=== PATIENT | male | born 1985 | race Caucasian/White ===

== ENCOUNTER 2020-07-15 11:02 | Inpatient (IN) ==
--- NOTE | 2020-06-24 10:04 | Anesthesiology Consultation ---
Date of Service June 24, 2020 History Surgery Operation Date: 07/15/20 12:25 Proposed Procedures p L3-L5 Revision Decompression Fusion, Spinal Cord Monitoring - Jason Malcolm DO Height/Weight Height: 6 ft Weight: 111.13 kg Allergies Allergy/AdvReac Type Severity Reaction Status Date / Time No Known Allergies Allergy Unverified 06/23/20 15:13 Medications Home Medications Medication Instructions Recorded Confirmed Last Taken albuterol sulfate 1 inh INHALATION QID PRN 05/31/20 06/23/20 Unknown amlodipine 10 mg PO QAM 05/31/20 06/23/20 Unknown hydrochlorothiazide 25 mg PO QAM 05/31/20 06/23/20 Unknown losartan 100 mg PO QAM 05/31/20 06/23/20 Unknown Past Medical History Medical History Asthma stable Chronic back pain herniated disc Hypertension Obesity Past Surgical History Surgical History Hx of laminectomy lumbar Hx of wisdom tooth extraction Social History Smoking Status: Current every day smoker tobacco type: cigarettes Smoking cigarettes per day: 1ppd (tobacco use x 10+ years) Do You Dip or Chew Tobacco: No Hx Alcohol Use: Yes alcohol intake frequency: a few times a month Hx Substance Use: Yes substance use type: marijuana Last Used Substance Other:: ocas for inflammation
--- NOTE | 2020-06-24 10:17 | Anesthesiology Consultation ---
Date of Service June 24, 2020 Assessment & Plan (1) Encounter for pre-operative examination: Patient seen in PAT on 06/07 and EKG showed new septal infarct. Note sent to PCP for comment, and PCP sent patient to cardiology for clearance. Surgery was postponed due to lack of appointment availability at cardio. New V# assigned to chart. Cardiology Clearance (Gaby Miller, [facility]) 06/22/20 = "He is currently stable and asymptomatic from a cardiovascular standpoint with no anginal symptoms occurring at >4 METS of activity. He has no evidence of CHF or significant valvular abnormality. His blood pressure is elevated in the clinic today. He believes it was better controlled when checked at another office last week. ...Will defer management of his hypertension to his PCP. Otherwise, patient is at an acceptable risk to proceed with upcoming surgery without any additional cardiovascular testing or intervention." Note also states that a rpt EKG was done at cardio appointment and was normal. Not yet uploaded to EMR. COVID Status: As of 06/23 nurse assessment, patient denies travel to endemic area, known exposure/sick contacts, or symptoms of COVID19. Preoperative COVID19 testing to be completed prior to surgery per surgeon's arrangements. Chart Review Chart Review: Acceptable Risk for Surgery and Patient seen in Pre Admission Testing (by Suzan Guzmán on 06/07, see her note for physical exam) History Surgery Operation Date: 07/15/20 12:25 Proposed Procedures p L3-L5 Revision Decompression Fusion, Spinal Cord Monitoring - Jason Malcolm, Height/Weight Height: 6 ft Weight: 111.13 kg Allergies Allergy/AdvReac Type Severity Reaction Status Date / Time No Known Allergies Allergy Unverified 06/23/20 15:13 Medications Home Medications Medication Instructions Recorded Confirmed Last Taken albuterol sulfate 1 inh INHALATION QID PRN 05/31/20 06/23/20 Unknown amlodipine 10 mg PO QAM 05/31/20 06/23/20 Unknown hydrochlorothiazide 25 mg PO QAM 05/31/20 06/23/20 Unknown losartan 100 mg PO QAM 05/31/20 06/23/20 Unknown Past Medical History Medical History Asthma stable Chronic back pain herniated disc Hypertension Obesity Past Surgical History Surgical History Hx of laminectomy lumbar Hx of wisdom tooth extraction Social History Smoking Status: Current every day smoker tobacco type: cigarettes Smoking cigarettes per day: 1ppd (tobacco use x 10+ years) Do You Dip or Chew Tobacco: No Hx Alcohol Use: Yes alcohol intake frequency: a few times a month Hx Substance Use: Yes substance use type: marijuana Last Used Substance Other:: ocas for inflammation Testing Laboratory Results See 06/07/20 labs from PAT Electrocardiogram Date: 06/07/20 Findings: + NSR @ (76bpm with sinus arrhythmia) Septal infarct, age undetermined. Septal infarct is new compared to 2016 EKG. Chest X-Ray Date: 06/07/20 Findings: + NAD
[~2020-07-15 11:02] MED LIST: ACETAMINOPHEN 500 MG TAB PO SCH; CEFAZOLIN 3000MG 72.5 ML IV SCH; CeleBREX 200 MG CAP PO SCH; GABAPENTIN 900 MG DOSE PO SCH; LR 15ML/HR IV SCH
[2020-07-15] MEDS ORDERED: HYDROmorphone INJ 1 MG/ML SYRINGE IV PRN ×2 (12:29→17:28)
[2020-07-15] MEDS ORDERED: ePHEDrine sulfate 50 MG/ML AMP IV PRN (12:29)
[2020-07-15] MEDS ORDERED: ATROPINE SULFATE 0.1 MG/ML 10ML SYR IV PRN (12:29)
[2020-07-15] MEDS ORDERED: ONDANSETRON INJ 2 MG/ML 2 ML VIAL IV PRN ×2 (12:29→17:28)
[2020-07-15] MEDS ORDERED: fentaNYL citrate 100 MCG/2 ML VIAL ONE (12:31)
[2020-07-15] MEDS ORDERED: ONDANSETRON INJ 2 MG/ML 2 ML VIAL ONE (12:31)
[2020-07-15] MEDS ORDERED: GLYCOPYRROLATE 0.2 MG/ML VIAL ONE (12:31)
[2020-07-15] MEDS ORDERED: DEXAMETHASONE SOD INJ 4 MG/ML VIAL ONE (12:31)
[2020-07-15] MEDS ORDERED: NEOSTIGMINE METHYLSULFATE 1 MG/ML 10ML VIAL ONE (12:31)
[2020-07-15] MEDS ORDERED: ROCURONIUM BROMIDE 10 MG/ML 5 ML VIAL IV ONE ×2 (12:31→14:11)
[2020-07-15] MEDS ORDERED: MIDAZOLAM HCL 1 MG/ML 2ML VIAL ONE (12:31)
[2020-07-15] MEDS ORDERED: HYDROmorphone INJ 2 MG/ML SYR/VIAL ONE (12:31)
[2020-07-15] MEDS ORDERED: PROPOFOL IV EMULSION 10 MG/ML 20 ML VIAL IV ONE (12:31)
[2020-07-15] MEDS ORDERED: LIDOCAINE HCL 2% 2 ML VIAL/AMP(20MG/ML) INFIL ONE (12:31)
--- NOTE | 2020-07-15 12:47 | History & Physical Bridge Note ---
Date of Service July 15, 2020 History & Physical Bridge Note I have examined the patient, reviewed the History & Physical and in the interval since the performance of the History & Physical I have noted the following changes of clinical significance: no changes noted
--- NOTE | 2020-07-15 12:48 | History & Physical Report ---
Date of Service July 15, 2020 Assessment & Plan (1) Neurogenic claudication due to lumbar spinal stenosis: Admission and Anticipated Discharge Date Admission Date: L3-L5 revision decompression and fusion History of Present Illness Chief Complaint: Back and bilateral leg pain Primary Care Provider: Jarod Arriaza DO This is a 35-year-old male presents with chronic persistent back and bilateral leg pain. Failed extensive course of nonoperative care is here for surgical invention. Allergies Allergy/AdvReac Type Severity Reaction Status Date / Time No Known Allergies Allergy Verified 07/15/20 11:36 Home Medications Home Medications Medication Instructions Recorded Confirmed Type albuterol sulfate 1 inh INHALATION QID PRN 05/31/20 07/15/20 History amlodipine 10 mg PO QAM 05/31/20 07/15/20 History hydrochlorothiazide 25 mg PO QAM 05/31/20 07/15/20 History losartan 100 mg PO QAM 05/31/20 07/15/20 History metoprolol tartrate 25 mg PO BID 07/15/20 07/15/20 History Past Med/Surg History Medical History Asthma stable Chronic back pain herniated disc Hypertension Obesity Surgical History Hx of laminectomy lumbar Hx of wisdom tooth extraction Social History Smoking Status: Current every day smoker Cigarettes Per Day: 1ppd (tobacco use x 10+ years); Second Hand Exposure: No; Do You Dip or Chew Tobacco: No; Tobacco Cessation Education Requested by Patient: No Hx Alcohol Use: Yes Hx Substance Use: Yes Last Used Substance Other:: ocas for inflammation Preferred Language: Burundian Communication Ability: Effective Paper Counter Required: No Beliefs That Will Affect Care: None Current Living Situation: Spouse Other Information That Helps Us Care for You: No Feels Safe at Home: Yes Safety Concerns: Feels Safe At This Time Physical Exam Physical Exam: Patient is alert and oriented neurologically intact. Heart regular rate and rhythm. Lungs clear to auscultation. Results & Data ([facility]) Vital Signs (Past 12 Hours) Vital Signs Temp Pulse Resp BP Pulse Ox 07/15/20 11:31 37.5 C 68 20 171/95 H 95
[2020-07-15] MEDS ORDERED: BACITRACIN INJ 50,000 UNIT VIAL ONE (13:22)
[2020-07-15] MEDS ORDERED: BUPIVACAINE/EPINEPHRINE 0.25% 1:200,000 30 ML VIAL ONE (13:22)
[2020-07-15] MEDS ORDERED: ALBUTEROL HFA INHALER 8.5 GM ONE (14:27)
[2020-07-15] MEDS ORDERED: FLOSEAL HEMOSTATIC MATRIX 10ML TOP ONE (15:26)
--- NOTE | 2020-07-15 15:55 | Operative Report ---
Post Operative Report Pre & Post Diagnosis Operation Date: 07/15/20 12:25 Pre-Op Diagnosis: Neurogenic claudication due to lumbar spinal stenosis Post-Op Diagnosis: Neurogenic claudication due to lumbar spinal stenosis I identified the patient and participated in the time-out.: Yes Procedure Operation Date: 07/15/20 12:25 Actual Procedures #1 revision decompression with medial facetectomies and foraminotomies L3-4 and L4-5 per #2 posterior spinal fusion L3-4 L4-5 per #3 placement posterior instrumentation L3-4 L4-5. #4 interbody fusion L3-4 and L4-5. #5 placement of peek cage 13 x 26 mm at L3-4 and 12 x 26 mm at L4-5 per #6 placement of locally harvested morselized autograft in the posterior lateral gutters. #7 placement infuse collagen sponge, master graft in the posterior gutters and ostial amp and interbody space. Surgeon Jason Malcolm DO Licensed Home Inspector Medical record Estimated Blood Loss 100 Findings See Below The patient is 6 feet tall weighing over 111 kg with a BMI in excess of 33. Patient's body habitus did create significant technical difficulty requiring her deepest retractors longus instruments in order to perform his procedure. This added at least 50% increase to the operative time. Specimens None Indications This is a 35-year-old male who presents with above-mentioned diagnosis after failing course of nonoperative care is here for the above-mentioned procedure. Description of Procedure Patient was met with identified informed consent obtained. Patient was then taken to the operative suite underwent an patient placed in a prone position the Omar table on top of the Chato frame. All bony prominences well-padded eyes inspected to ensure no external pressure placed upon them. This point the lumbar spine was prepped and draped in a normal sterile fashion. Sharp dissection with assistance of Bovie cautery was performed down to and exposing the remaining lamina and transverse processes of L3-L4 and L5 bilaterally. From a caudal cephalad fashion a revision complete laminectomy of L4 and L3 was performed including medial facetectomies and foraminotomies on the right to address all stenosis. Pedicle screws were then placed in L3-L4-L5 bilaterally with assistance of fluoroscopy and the proper sized kar placed. By way of a transforaminal approach on the right complete discectomy of L4-5 was performed endplates curetted to subcortical bleeding bone and a 12 x 26 mm peek cage filled with osteo-bone graft tapped in position. Then proceeded to L3-[address] of a transforaminal approach on the right discectomy was performed endplates curetted to subcortical bleeding bone and a 13 x 26 mm peek cage filled with osteo-bone graft tapped in position. The rods were then locked in final position bilaterally. The transverse processes of L3-L4 and L5 bur to subcortical bleeding bone. Infuse collagen sponge master graft local autograft was placed in the posterior lateral gutters. 15 round CLARISSA drain inserted. The incision was then closed with 1 Vicryl in the fascia 2-0 Vicryl subcutaneously and 4 Monocryl for final skin closure. Steri-Strip sterile dressings placed. Patient waken taken PACU stable condition. Please note spinal cord monitoring was utilized that the procedure no changes noted. Lastly Toby record was present at the entire surgery involved the patient positioning complex portions of the surgery and final skin closure. I attest to the content of the Intraoperative Record and any orders documented therein. Any exceptions are noted below.
--- NOTE | 2020-07-15 16:01 | Fluoroscopy Report ---
FL lumbar spine 2-3V CLINICAL HISTORY: L3-L5 REVISION DECOMPRESSION FUSION COMPARISON STUDY: Fluoroscopic image of the lumbar spine February 07, 2016. FLUOROSCOPY TIME: 20 seconds. FLUOROSCOPIC IMAGES: 3 FINDINGS: These images demonstrate L3-L4 and L4-L5 discectomies with interbody spacer placement. Post erior decompression is noted. There are bilateral pedicle screws at the L3, L4 and L5 levels. Hardwar e is intact. IMPRESSION: Fluoroscopic images demonstrating L3-L4 and L4-L5 discectomies and bilateral pedicle scre w fusion from L3 through L5. ACT 112: Negative or not required by law. Electronically signed by: Iván Florian M.D. 07/15/2020 4:00 PM
[2020-07-15] MEDS: fentaNYL citrate 100 MCG/2 ML VIAL IV PRN ×2 (16:37→16:42)
--- NOTE | 2020-07-15 16:58 | Anesthesiology Progress Note ---
Date of Service July 15, 2020 Anesthesia Post Procedure Vital Signs Vital Signs: Temp Pulse Pulse Resp BP BP Pulse Ox 07/15/20 16:50 36.8 C 67 15 156/73 H 93 07/15/20 16:40 72 20 171/90 H 97 07/15/20 16:30 89 16 173/96 H 94 07/15/20 16:22 37.1 C 85 18 184/93 H 94 07/15/20 11:31 37.5 C 68 20 171/95 H 95 Pain Intensity Back: Pain Intensity: 3 Transfer of Care Handoff Completed per policy Notes Mental Status: alert / awake / arousable Patient Amnestic to Procedure: Yes Nausea / Vomiting: adequately controlled Pain: adequately controlled Airway Patency, RR, SpO2: stable & adequate BP & HR: stable & adequate Hydration State: stable & adequate Anesthetic Complications: no major complications apparent and Pt Satisfied with anesthetic care
[2020-07-15] MEDS ORDERED: SOD PHOSPHATE/SOD BIPHOSPHATE ENEMA 132 ML BTL PR PRN (17:28)
[2020-07-15] MEDS ORDERED: bisacodyL 10 MG SUPP PR PRN (17:28)
[2020-07-15] MEDS ORDERED: ACETAMINOPHEN 500 MG TAB PO PRN (17:28)
[2020-07-15] MEDS ORDERED: TRAMADOL HCL 50 MG TABLET PO PRN (17:28)
[2020-07-15] MEDS ORDERED: ALUMINUM/MAGNESIUM SUSP 30 ML UDC PO PRN (17:28)
[2020-07-15] MEDS ORDERED: HYDROmorphone INJ 0.5 MG/0.5 ML SYR IV PRN (17:28)
[2020-07-15] MEDS ORDERED: MAGNESIUM HYDROXIDE SUSP 30 ML UDC PO PRN (17:28)
[2020-07-15] MEDS ORDERED: METOCLOPRAMIDE HCL INJ 5 MG/ML 2 ML VIAL IV PRN (17:28)
[2020-07-15] MEDS ORDERED: DO NOT ADMINISTER FLU VACCINE PRN (17:28)
[2020-07-15] MEDS ORDERED: PROMETHAZINE HCL 12.5 MG in SODIUM CHLORIDE 0.9% 50 ML IV PRN (17:28)
[2020-07-15] MEDS ORDERED: FAMOTIDINE 20 MG TAB PO PRN (17:28)
[2020-07-15] MEDS ORDERED: ALBUTEROL HFA 8 GM INHALER INH PRN (17:28)
[2020-07-15] MEDS ORDERED: ONDANSETRON 4 MG OD TAB PO PRN (17:28)
[2020-07-15] MEDS ORDERED: NALOXONE HCL 0.4 MG/1 ML VIAL/CARP IV PRN (17:28)
[2020-07-15] MEDS ORDERED: LORazepam 0.5 MG/1 ML VIAL IV PRN (17:28)
[2020-07-15] MEDS ORDERED: DO NOT ADMINISTER PNEUMOCOCCAL VACCINE PRN (17:28)
[2020-07-15] MEDS ORDERED: ACETAMINOPHEN 1,000 MG/100 ML VIAL IV PRN (17:28)
--- NOTE | 2020-07-15 17:58 | Hospitalist Consultation ---
Date of Consultation July 15, 2020 Assessment & Plan (1) Neurogenic claudication due to lumbar spinal stenosis: - POD#0 L3-L5 revision of decompression and fusion by Dr. Malcolm - activity and wound care orders as per ortho - pain control with bowel regimen - PT/OT - monitor H/H for acute blood loss anemia and transfuse blood products PRN - EBL 100 cc (2) Hypertension: -BP controlled, continue losartan, amlodipine, HCTZ, metoprolol -Patient reports PCP is starting work-up for secondary causes of HTN as an outpatient (3) DVT prophylaxis: -TEDs/SCDs as per spine Ortho Thank you for this consultation. We will follow the patient with you during their hospital stay. You can reach a [facility] via pager @ [phone]. Supervising Physician Co-Signing Physician Notes I, Dr. Terrance Eugene, have seen and examined the patient Kali Olivaresdamien with nurse practitioner and On Physical Exam General: no distress Eyes: EOMI Heart: regular rate Lung: clear to auscultation Back: CLARISSA drain Abdomen: soft Extremities no edema Assessment and Plan -This is a patient of orthopedics who had Pre-Op Diagnosis of Neurogenic claudication due to lumbar spinal stenosis -On 07/15/20 patient had the following lumbar spine procedure by Dr. Malcolm #1 revision decompression with medial facetectomies and foraminotomies L3-4 and L4- 5 per #2 posterior spinal fusion L3-4 L4-5 per #3 placement posterior instrumentation L3-4 L4-5. #4 interbody fusion L3-4 and L4-5. #5 placement of peek cage 13 x 26 mm at L3-4 and 12 x 26 mm at L4-5 per #6 placement of locally harvested morselized autograft in the posterior lateral gutters. #7 placement infuse collagen sponge, master graft in the posterior gutters and ostial amp and interbody space. -Hospitalist Medicine service is asked for consultation for Medical management -management of Hypertension as above -nausea and pain medications prn -PT/OT evaluations, follow the labs for 07/16/2020 -agree with other assessment and plans of other health conditions as documented by nurse practitioner -My colleague hospitalist Dr. Morocho will be following the patient starting on 07/16/2020 History of Present Illness Reason for Consultation: Postop medical management Requesting Physician: Dr. Malcolm Attending Physician: Dr. Eugene History of Present Illness 35-year-old male with PMH hypertension and other problems listed below who is status post L3-L5 revision decompression and fusion today by Dr. Malcolm. Postoperatively, the patient is doing well. He reports his pain is well controlled. Denies numbness and tingling to lower extremities. No chest pain or shortness of breath. Denies lightheadedness and dizziness. No abdominal pain or nausea. Conrad catheter is in place draining clear yellow urine. Allergies Allergy/AdvReac Type Severity Reaction Status Date / Time No Known Allergies Allergy Verified 07/15/20 11:36 Home Medications Home Medications Medication Instructions Recorded Confirmed Type albuterol sulfate 1 inh INHALATION QID PRN 05/31/20 07/15/20 History amlodipine 10 mg PO QAM 05/31/20 07/15/20 History hydrochlorothiazide 25 mg PO QAM 05/31/20 07/15/20 History losartan 100 mg PO QAM 05/31/20 07/15/20 History metoprolol tartrate 25 mg PO BID 07/15/20 07/15/20 History Patient History Medical History Asthma stable Chronic back pain herniated disc Hypertension Obesity Surgical History Hx of laminectomy lumbar Hx of wisdom tooth extraction Family History Other Family history non-contributory Social History Smoking Status: Current every day smoker Cigarettes Per Day: 1ppd (tobacco use x 10+ years); Second Hand Exposure: No; Do You Dip or Chew Tobacco: No; Tobacco Cessation Education Requested by Patient: No Hx Alcohol Use: Yes Hx Substance Use: Yes Last Used Substance Other:: ocas for inflammation Preferred Language: Occitan Communication Ability: Effective Manager Pulmonary Required: No Beliefs That Will Affect Care: None Current Living Situation: Spouse Other Information That Helps Us Care for You: No Feels Safe at Home: Yes Safety Concerns: Feels Safe At This Time Review of Systems Review of Systems: ROS per HPI, all other systems reviewed and negative Physical Exam Constitutional: WD/WN, vitals as above Eyes: PERRL, conjunctivae normal, anicteric sclerae ENMT: external ear and nose normal, oropharynx normal Respiratory: normal respiratory effort, lungs clear to auscultation Cardiovascular: Rate/Rhythm: regular rate and regular rhythm Vessels: n ormal peripheral pulses Extremities: no edema Gastrointestinal (Abdomen): normal bowel sounds, soft, nontender, no hepatosplenomegaly Musculoskeletal: no cyanosis or clubbing, extremities motor strength 5/5 S/p back surgery, pedal pushes and pulls strong bilaterally, drain in place draining bloody drainage Skin: no rashes, warm and dry Neurologic: PERRL, EOMI, accommodation nl, no face palsy, no dysarthria Psychiatric: A+Ox3, euthymic affect Results & Data Results & Data ([facility]) Vital Signs (Past 12 Hours) Vital Signs Temp Pulse Pulse Resp BP BP Pulse Ox 07/15/20 17:00 76 16 128/68 92 07/15/20 16:50 36.8 C 67 15 156/73 H 93 07/15/20 16:40 72 20 171/90 H 97 07/15/20 16:30 89 16 173/96 H 94 07/15/20 16:22 37.1 C 85 18 184/93 H 94 07/15/20 11:31 37.5 C 68 20 171/95 H 95
[2020-07-15] MEDS: KETOROLAC 30 MG/ML VIAL IV SCH (18:41)
[2020-07-15] MEDS: LACTATED RINGER'S 1,000 ML IV SCH (18:43)
[2020-07-15] MEDS: OXYCODONE HCL IR 5 MG TAB (IMMEDIATE RELEASE) PO PRN (20:25)
[2020-07-15] MEDS: DOCUSATE SODIUM/SENNA 50/8.6MG TAB PO SCH (20:27)
[2020-07-15] MEDS: METOPROLOL TARTRATE 25 MG TAB PO SCH (20:27)
[2020-07-15] MEDS: CEFAZOLIN 2000MG 2,000 MG/15 ML SYR IV SCH (22:13)
[2020-07-15] MEDS: LORazepam 0.5 MG TAB PO PRN (22:13)
[2020-07-16] MEDS: KETOROLAC 30 MG/ML VIAL IV SCH ×3 (00:03→12:41)
[2020-07-16] MEDS: LACTATED RINGER'S 1,000 ML IV SCH (00:03)
[2020-07-16] MEDS: OXYCODONE HCL IR 5 MG TAB (IMMEDIATE RELEASE) PO PRN ×4 (03:48→20:16)
[2020-07-16] MEDS: CEFAZOLIN 2000MG 2,000 MG/15 ML SYR IV SCH (05:44)
[2020-07-16] MEDS: POLYETHYLENE (MIRALAX) 17 GM PACK PO SCH ×4 (05:45→23:38)
[2020-07-16 05:49] LABS: Basophils # (auto) 0.01 K/uL (0-0.2); Basophils % (auto) 0.1 %; Eosinophils # (auto) 0.01 K/uL (0-0.5); Eosinophils % (auto) 0.1 %; Hematocrit (blood only) 38.4 % (42-52); Hemoglobin 13.3 g/dL (14.0-18.0); Immature Granulocytes # (auto) 0.05 K/uL (0.00-0.02); Immature Granulocytes % (auto) 0.3 %; Lymphocytes # (auto) 3.12 K/uL (1.2-3.4); Mean Corpuscular Hemoglobin 30.7 pg (25-34); Mean Corpuscular Hgb Conc 34.6 g/dL (32-36); Mean Corpuscular Volume 88.7 fL (80-100); Mean Platelet Volume 10.2 fL (7.4-10.4); Monocytes # (auto) 0.74 K/uL (0.11-0.59); Monocytes % (auto) 4.5 %; Neutrophils # (auto) 12.49 K/uL (1.4-6.5); Platelet Count 213 K/uL (130-400); RDW Standard Deviation 38.9 fL (36.4-46.3); Red Blood Count 4.33 M/uL (4.7-6.1); White Blood Count 16.42 K/uL (4.8-10.8)
[2020-07-16 06:25] LABS: BUN Creatinine Ratio 16.2 (10-20); Calcium 8.5 mg/dl (8.5-10.1); Creatinine Clr Calc Pharmacy 161.9 ml/min; Est GFR (African American) 132.8; Est GFR (Non-African American) 114.6
--- NOTE | 2020-07-16 08:17 | Orthopedic Progress Note ---
Date of Service July 16, 2020 Assessment & Plan (1) Neurogenic claudication due to lumbar spinal stenosis: Admission and Anticipated Discharge Date Admission Date: July 15, 2020 Supervising Physician Co-Signing Physician Notes Dr. Jason Malcolm Subjective Patient is postoperative day 1 posterior spinal fusion L3-5. He has had an uneventful evening. He is doing well this morning. Back pain is controlled. Leg pain he had preoperatively is greatly improved. H&H is morning are 13.3 and 38.4 respectively. CLARISSA drain output last shift was 90 cc. He has no other complaints. Review of Systems Review of Systems: All systems reviewed & are unremarkable except as noted in HPI & below Physical Exam Physical Exam: He is lying in bed in no acute distress. He is alert and oriented x3. Lumbar dressing is clean dry and intact with functioning CLARISSA drain. Lower extremities calves are soft nontender bilaterally. Strength is 5/5 bilaterally. Constitutional: WD/WN, vitals as above Eyes: normal visual whyte by confrontation ENMT: external ear and nose normal, oropharynx normal Neck: normal visual inspection Respiratory: normal respiratory effort Cardiovascular: Extremities: normal capillary refill Chest (Breasts): Chest: normal inspection of chest Gastrointestinal (Abdomen): Inspection/Auscultation: abdomen normal to inspection Musculoskeletal: Extremities: extremities normal to inspection and strength 5/ 5 throughout Skin: no rashes, warm and dry Neurologic: normal touch/pain/proprioception and moves all extremities Psychiatric: A+Ox3, euthymic affect Results & Data ([facility]) Vital Signs (Past 12 Hours) Vital Signs Temp Pulse Resp BP BP Pulse Ox 07/16/20 07:21 36.7 C 68 14 136/79 98 07/16/20 04:03 37.1 C 67 14 134/79 97 07/15/20 23:17 36.9 C 63 14 132/82 93 07/15/20 20:24 36.7 C 74 16 151/83 H 99
[2020-07-16] MEDS: LOSARTAN POTASSIUM 50 MG TAB PO SCH (09:16)
[2020-07-16] MEDS: hydroCHLOROthiazide 25 MG TAB PO SCH (09:16)
[2020-07-16] MEDS: AMLODIPINE BESYLATE 5 MG TAB PO SCH (09:16)
[2020-07-16] MEDS: METOPROLOL TARTRATE 25 MG TAB PO SCH ×2 (09:16→20:16)
--- NOTE | 2020-07-16 13:26 | Hospitalist Progress Note ---
Date of Service July 16, 2020 Assessment & Plan (1) Neurogenic claudication due to lumbar spinal stenosis: - L3-L5 revision of decompression and fusion by Dr. Malcolm on 07/15/2020 - activity and wound care orders as per ortho - pain control with bowel regimen - PT/OT CBC and PRP remain unremarkable Hemoglobin 13.3 as of 07/16/2020(15.2 on 06/07/2020) We will monitor (2) Hypertension: -BP controlled, continue losartan, amlodipine, HCTZ, metoprolol -Patient reports PCP is starting work-up for secondary causes of HTN as an outpatient -Remains stable (3) DVT prophylaxis: -TEDs/SCDs as per spine Ortho Thank you for this consultation. We will follow the patient with you during their hospital stay. You can reach a member of the [facility]ist Team 03/06 via pager @ [phone]. Admission and Anticipated Discharge Date Admission Date: July 15, 2020 Subjective 07/16/2020 Patient was seen and examined in the medical floor He is a status post revision decompression with fusion L3-4 L5 on 07/15/20 Complains minimal pain in the back but denies any other significant symptoms Review of Systems Review of Systems: All systems reviewed and are unremarkable except as noted b elow Musculoskeletal: Ongoing back pain without any radiation Physical Exam Physical Exam: Sitting on a chair without any acute distress Constitutional: well developed and well nourished; no acute distress and not ill appearing Eyes: PERRL, conjunctivae normal, anicteric sclerae ENMT: external ear and nose normal, oropharynx normal Neck: trachea midline, no thyromegaly Respiratory: normal respiratory effort; no respiratory distress Auscultation: lungs clear to auscultation bilaterally Cardiovascular: Rate/Rhythm: regular rate and regular rhythm Heart Sounds: no murmur Gastrointestinal (Abdomen): Inspection/Auscultation: abdomen normal to inspection; abdomen not distended Percussion/Palpation: abdomen soft; abdomen nontender Musculoskeletal: Lumbar back pain and tenderness Neurologic: moves all extremities; no focal motor deficits Results & Data Results & Data ([facility]) Vital Signs (Past 12 Hours) Vital Signs Temp Pulse Resp BP BP Pulse Ox 07/16/20 12:53 98 07/16/20 12:00 37.0 C 63 14 149/84 H 99 07/16/20 07:21 36.7 C 68 14 136/79 98 07/16/20 04:03 37.1 C 67 14 134/79 97 Laboratory Results Short CBC 07/16/20 Range/Units 05:26 WBC 16.42 H (4.8-10.8) K/uL Hgb 13.3 L (14.0-18.0) g/dL Hct 38.4 L (42-52) % Plt Count 213 (130-400) K/uL BMP 07/16/20 05:26 Sodium 139 Potassium 4.0 Chloride 106 Carbon Dioxide 26 BUN 13 Creatinine 0.82 Glucose 120 H Calcium 8.5 Medications Administered Current Inpatient Medications Acetaminophen (Acetaminophen 500 Mg Tab) 1,000 mg PO Q8H PRN PRN Reason: MILD Pain Scale 1,2,3 & Pre PT Stop: 08/14/20 17:27 Al Hydrox/Mg Hydrox/Simethicone (Aluminum/Magnesium Susp 30 Ml Udc) 30 ml PO Q6H PRN PRN Reason: Dyspepsia Stop: 08/14/20 17:27 Albuterol (Albuterol Hfa 8 Gm Inhaler) 1 puffs INH QID PRN PRN Reason: sob Stop: 08/14/20 17:27 Amlodipine Besylate (Amlodipine Besylate 5 Mg Tab) 10 mg PO QAM [facility] Stop: 08/15/20 08:59 Last Admin: 07/16/20 09:16 Dose: 10 mg Documented by: Bisacodyl (Bisacodyl 10 Mg Supp) 10 mg NM DAILY PRN PRN Reason: Constipation Stop: 08/14/20 17:27 Diphenhydramine HCl (Diphenhydramine Hcl 25 Mg Cap) 25 mg PO Q6H PRN PRN Reason: Allergic Rhinitis/Insomnia Stop: 08/14/20 17:27 Famotidine (Famotidine 20 Mg Tab) 20 mg PO Q12H PRN PRN Reason: Dyspepsia Stop: 08/14/20 17:27 Hydrochlorothiazide (Hydrochlorothiazide 25 Mg Tab) 25 mg PO QAM [facility] Stop: 08/15/20 08:59 Last Admin: 07/16/20 09:16 Dose: 25 mg Documented by: Hydromorphone HCl (Hydromorphone Inj 0.5 Mg/0.5 Ml Syr) 0.5 mg IV Q3H PRN PRN Reason: MOD pain (scale 4-6) & Pre PT Stop: 07/29/20 17:27 Last Admin: 07/15/20 18:45 Dose: 0.5 mg Documented by: Hydromorphone HCl (Hydromorphone Inj 1 Mg/Ml Syringe) 1 mg IV Q3H PRN PRN Reason: severe pain (scale 7-10) Stop: 07/29/20 17:27 Hydroxyzine HCl (Hydroxyzine Hcl 25 Mg Tab) 25 mg PO Q8H PRN PRN Reason: Anxiety Stop: 08/14/20 17:27 Lorazepam (Ativan) 0.5 mg in 1 mls @ 0.5 mls/min IV Q8H PRN PRN Reason: Sedation/Anxiety Stop: 08/14/20 17:27 Acetaminophen (Ofirmev) 1,000 mg in 100 mls @ 400 mls/hr IV Q8H PRN PRN Reason: MILD Pain Rating 1,2,3 Stop: 07/16/20 17:27 Promethazine HCl 12.5 mg/ (Sodium Chloride) 50.5 mls @ 204 mls/hr IV Q6H PRN PRN Reason: Nausea &/or Vomiting Stop: 08/14/20 17:27 Influenza Virus Vaccine Quadrival (Do Not Administer Flu Vaccine) 1 ea N/A PRN PRN PRN Reason: Notification Stop: 08/14/20 17:27 Lorazepam (Lorazepam 0.5 Mg Tab) 0.5 mg PO Q8H PRN PRN Reason: Sedation/Anxiety Stop: 08/14/20 17:27 Last Admin: 07/15/20 22:13 Dose: 0.5 mg Documented by: Losartan Potassium (Losartan Potassium 50 Mg Tab) 100 mg PO [facility] Stop: 08/15/20 08:59 Last Admin: 07/16/20 09:16 Dose: 100 mg Documented by: Magnesium Hydroxide (Magnesium Hydroxide Susp 30 Ml Udc) 30 ml PO DAILY PRN PRN Reason: Constipation Stop: 08/14/20 17:27 Metoclopramide HCl (Metoclopramide Hcl Inj 5 Mg/Ml 2 Ml Vial) 10 mg IV Q6H PRN PRN Reason: Nausea &/or Vomiting Stop: 08/14/20 17:27 Metoprolol Tartrate (Metoprolol Tartrate 25 Mg Tab) 25 mg PO BID [facility] Stop: 08/14/20 20:59 Last Admin: 07/16/20 09:16 Dose: 25 mg Documented by: Naloxone HCl (Naloxone Hcl 0.4 Mg/1 Ml Vial/Carp) 0.1 mg IV Q5M PRN; Protocol PRN Reason: Oversedation/Resp Depression Stop: 08/14/20 17:27 Ondansetron HCl (Ondansetron Inj 2 Mg/Ml 2 Ml Vial) 4 mg IV Q6H PRN PRN Reason: Nausea &/or Vomiting Stop: 08/14/20 17:27 Ondansetron HCl (Ondansetron 4 Mg Od Tab) 4 mg PO Q6H PRN PRN Reason: Nausea Stop: 08/14/20 17:27 Oxycodone HCl (Oxycodone Hcl Ir 5 Mg Tab (Immediate Release)) 5 - 10 mg PO Q4H PRN PRN Reason: Moderate-Severe Pain & Pre PT Stop: 07/29/20 17:27 Last Admin: 07/16/20 08:01 Dose: 10 mg Documented by: Pneumococcal Polyvalent Vaccine (Do Not Administer Pneumococcal Vaccine) 1 ea N/A PRN PRN PRN Reason: Notification Stop: 08/14/20 17:27 Polyethylene Glycol (Polyethylene (Miralax) 17 Gm Pack) 17 gm PO Q6 [facility] Stop: 08/15/20 05:59 Last Admin: 07/16/20 12:41 Dose: 17 gm Documented by: Senna/Docusate Sodium (Docusate Sodium/Senna 50/8.6mg Tab) 2 tab PO HS [facility] Stop: 08/14/20 20:59 Last Admin: 07/15/20 20:27 Dose: 2 tab Documented by: Sodium Biphosphate/Sodium Phosphate (Sod Phosphate/Sod Biphosphate Enema 132 Ml Btl) 132 ml NM ONE PRN PRN Reason: Constipation Stop: 08/14/20 17:27 Tramadol HCl (Tramadol Hcl 50 Mg Tablet) 50 - 100 mg PO Q4H PRN PRN Reason: Moderate-Severe Pain & Pre PT Stop: 08/14/20 17:27
[2020-07-16] MEDS: DOCUSATE SODIUM/SENNA 50/8.6MG TAB PO SCH (20:17)
[2020-07-16] MEDS: LORazepam 0.5 MG TAB PO PRN (21:42)
[2020-07-17] MEDS: OXYCODONE HCL IR 5 MG TAB (IMMEDIATE RELEASE) PO PRN ×3 (01:04→09:28)
[2020-07-17] MEDS: POLYETHYLENE (MIRALAX) 17 GM PACK PO SCH (05:21)
[2020-07-17 05:33] LABS: Hematocrit (blood only) 36.3 % (42-52); Hemoglobin 12.4 g/dL (14.0-18.0); Mean Corpuscular Hemoglobin 30.7 pg (25-34); Mean Corpuscular Hgb Conc 34.2 g/dL (32-36); Mean Corpuscular Volume 89.9 fL (80-100); Mean Platelet Volume 10.1 fL (7.4-10.4); Platelet Count 192 K/uL (130-400); RDW Coefficient of Variation 12.2 % (11.5-14.5); RDW Standard Deviation 39.9 fL (36.4-46.3); Red Blood Count 4.04 M/uL (4.7-6.1); White Blood Count 10.78 K/uL (4.8-10.8)
[2020-07-17 06:27] LABS: ALC (manual) 4.59 K/uL (1.2-3.4); ANC (manual) 4.87 K/uL (1.4-6.5); Basophils # (manual) 0.38 K/uL (0-0.2); Basophils % (manual) 3.5 %; Eosinophils # (manual) 0.28 K/uL (0-0.5); Eosinophils % (manual) 2.6 %; Lymphocytes # (manual) 4.59 K/uL (1.2-3.4); Lymphocytes % (manual) 42.6 %; Monocytes # (manual) 0.66 K/uL (0.11-0.59); Monocytes % (manual) 6.1 %; Neutrophils # (manual) 4.87 K/uL (1.4-6.5); Neutrophils % (manual) 45.2 %; RBC Morphology Unremarkable
--- NOTE | 2020-07-17 08:43 | Discharge Summary ---
Date of Service July 17, 2020 Admission HPI Per Admitting Provider This is a 35-year-old male presents with chronic persistent back and bilateral leg pain. Failed extensive course of nonoperative care is here for surgical invention. Admission Exam (Per Admitting) Constitutional WD/WN, vitals as above Eyes normal visual whyte by confrontation ENMT external ear and nose normal, oropharynx normal Neck normal visual inspection Respiratory normal respiratory effort Cardiovascular Vessels: dorsalis pedis pulses present Extremities: normal capillary refill Chest (Breasts) Chest: normal inspection of chest Gastrointestinal (Abdomen) Inspection/Auscultation: abdomen normal to inspection Musculoskeletal Extremities: extremities normal to inspection and strength 5/5 throughout Skin no rashes, warm and dry Neurologic normal touch/pain/proprioception and moves all extremities Psychiatric A+Ox3, euthymic affect Eye Contact: good eye contact Speech: normal rate/rhythm/volume of speech Discharge Data Consultations 07/15/20 17:28 Consult Case Management - Discharge Planning Routine Consult Hospitalist Routine Procedures Performed Operation Date: 07/15/20 12:25 Actual Procedures p L3-L5 Revision Decompression Fusion, Spinal Cord Monitoring, Interbody fusion L3-L4-L4-L5, Application of Bone Morphogenetic Protein and Allograft - Jason Malcolm, DO Hospital Course (1) Neurogenic claudication due to lumbar spinal stenosis: Patient has had an uneventful postoperative course status post lumbar decompression fusion L3-5. Radicular leg pain is greatly improved postoperatively. Back pain is been controlled. He is ambulating over 500 feet in physical therapy. CLARISSA drain is diminishing daily. He has been discharged home on postoperative day 2. Discharge Instructions ACTIVITY RECOMMENDATIONS: SELF CARE INSTRUCTIONS AFTER THORACIC/LUMBAR FUSIONS 1. You may walk to your tolerance. It is good exercise for your legs and back. Expect some back and intermittent leg aches and pains. 2. You may perform "counter-top" level activities (make a sandwich, anne with a project, etc.). 3. No bending or lifting of more than 10 pounds or back twisting of any nature (roll like a log when turning in bed). 4. You may ride in a car for 20-30 minutes at a time. No driving until after your first visit with your doctor. 5. Frequent changes of position and restricting sitting to 30 minutes at a time will help limit the amount of back spasms and stiffness you may experience. 6. You may discontinue the use of ambulatory aids (cane, crutches, etc.) once your strength and confidence allow. 7. You may electrical project engineer the shower and let water strike your incision when you arrive home at least once daily. Do not take a tub bath, sit in a hot tub or go into a swimming pool until after your first recheck in the office. SPECIAL CARE INSTRUCTIONS: VERY IMPORTANT TO READ AND REVIEW A. Your surgical incision has been closed with a cosmetic suture under the skin that will dissolve in about 6 weeks. In 14 days, you can use a pair of clean scissors and cut the suture that is left outside of the skin at the ends of your incision. 1. The small skin tapes can be removed 7 days after surgery if they have not fallen off by that point. 2. You may keep the wound open to air as much as possible to promote healing after post-op day number 5 unless told otherwise by your doctor. 3. If you think the wound looks like it is becoming infected (redness or worsening drainage) and/or you are experiencing fever, chill or worsening back pain and muscle spasms, contact the office so that we may evaluate you as soon as possible. B. Complications are uncommon, but please contact us if you have any signs or symptoms of: 1. wound infection (fever higher than 102.5 degrees F, redness, separation of wound, drainage, or increasing pain from the incision) 2. blood clots in legs (pain, swelling, redness and warmth in legs) 3. urinary tract infection (fever higher than 102.5 degrees F, burning upon urination or increased frequency of urination) 4. nerve problems (inability to walk on your toes or heels, numbness, loss of bowel or bladder control) 5. any other symptoms that concern you C. Please call the office at if you have any concerns or questions about your operation or recovery. D. No smoking! Smoking drastically decreases the chance of a solid fusion. E. Do not take any anti-inflammatory medications (Indocin, Advil, Motrin, Aspirin, Naprosyn, etc.) as these may inhibit the chance of a solid fusion. Tylenol is okay to take for pain. MANAGING PAIN AFTER SPINAL SURGERY 1. Narcotic medication is intended for short-term use and will be provided for surgical pain. Surgical pain usually lasts for a period of 4-6 weeks. Narcotic medication includes Percocet, Vicodin, Darvocet, Tylenol #3 or Lortab. 2. Longer-term pain is more appropriately treated with non-narcotic medication such as Tylenol ES. 3. Muscle spasm is not appropriately treated with narcotics. Muscle relaxers such as Soma, Flexeril or Skelaxin can be used along with Tylenol ES. 4. Remember that we all live with some "aches and pains". This is not unusual or uncommon after an injury or as we get older. a. Back pain is expected and may include muscle spasms for 4 to 6 weeks after surgery. The pain should gradually improve. If the pain worsens for no apparent reason, please contact the office. b. Intermittent leg pain may also be experienced and should not be concerned about unless it worsens for no apparent reason. If so, please contact the office. 5. We will provide appropriate medication within the normal guidelines of their prescribed use. We will also be very cautious and aware of potential abuse and extended duration of patients' medication needs. a. Pain medications are for your comfort and to assist with sleep and rest so that the tissue can heal. They are not provided in order to return to normal activity and should not be used through the day. To do so or worsening pain at night can result from ongoing tissue damage and development of tolerance to the prescribed medicine. 6. Please allow 2-3 days to process refills. Prescriptions will not be mailed but must be picked up at the office. FOLLOW UP VISIT: Keep your scheduled follow-up appointment. Any questions, please call the office at . Supervising Physician Co-Signing Physician Notes Dr. Jason Malcolm
[2020-07-17] MEDS: METOPROLOL TARTRATE 25 MG TAB PO SCH (09:27)
[2020-07-17] MEDS: AMLODIPINE BESYLATE 5 MG TAB PO SCH (09:27)
[2020-07-17] MEDS: hydroCHLOROthiazide 25 MG TAB PO SCH (09:27)
[2020-07-17] MEDS: LOSARTAN POTASSIUM 50 MG TAB PO SCH (09:28)
--- NOTE | 2020-07-17 13:33 | Hospitalist Progress Note ---
Date of Service July 17, 2020 Assessment & Plan (1) Neurogenic claudication due to lumbar spinal stenosis: - L3-L5 revision of decompression and fusion by Dr. Malcolm on 07/15/2020 - activity and wound care orders as per ortho - pain control with bowel regimen - PT/OT-has been doing well -Will be discharged today as per primary CBC and PRP remain unremarkable Hemoglobin 13.3 as of 07/16/2020(15.2 on 06/07/2020) We will monitor-remained stable as of 07/17/2020 (2) Hypertension: -BP controlled, continue losartan, amlodipine, HCTZ, metoprolol -Patient reports PCP is starting work-up for secondary causes of HTN as an outpatient -Remains stable (3) DVT prophylaxis: -TEDs/SCDs as per spine Ortho Thank you for this consultation. We will follow the patient with you during their hospital stay. You can reach a [facility] via pager @ [phone]. Medically stable to be discharged Admission and Anticipated Discharge Date Admission Date: July 15, 2020 Subjective 07/16/2020 Patient was seen and examined in the medical floor He is a status post revision decompression with fusion L3-4 L5 on 07/15/20 Complains minimal pain in the back but denies any other significant symptoms 07/17/2020 The patient was seen and examined in the medical floor He has minimal pain at the back without radiation Ambulating well in the room and in the hallway Denies any significant symptoms Review of Systems Review of Systems: All systems reviewed and are unremarkable except as noted below Musculoskeletal: Ongoing back pain without any radiation-much improved Physical Exam Physical Exam: Sitting on a chair without any acute distress Constitutional: well developed and well nourished; no acute distress and not ill appearing Eyes: PERRL, conjunctivae normal, anicteric sclerae ENMT: external ear and nose normal, oropharynx normal Neck: trachea midline, no thyromegaly Respiratory: normal respiratory effort; no respiratory distress Auscultation: lungs clear to auscultation bilaterally Cardiovascular: Rate/Rhythm: regular rate and regular rhythm Heart Sounds: no murmur Gastrointestinal (Abdomen): Inspection/Auscultation: abdomen normal to inspection; abdomen not distended Percussion/Palpation: abdomen soft; abdomen nontender Musculoskeletal: Minimal back pain with movement Neurologic: moves all extremities; no focal motor deficits Results & Data Results & Data ([facility]) Vital Signs (Past 12 Hours) Vital Signs Temp Pulse Resp BP BP Pulse Ox 07/17/20 07:57 36.5 C 72 18 127/74 98 07/17/20 07:27 36.5 C 62 14 136/78 149/80 H 95 Laboratory Results Short CBC 07/17/20 Range/Units 05:18 WBC 10.78 (4.8-10.8) K/uL Hgb 12.4 L (14.0-18.0) g/dL Hct 36.3 L (42-52) % Plt Count 192 (130-400) K/uL
== END 2020-07-17 10:58 | disposition home or self-care (01) | DRG 455 ==
LOC: ASU 11:02 → 3E 16:38